=== PATIENT | male | born 1930 | race African-American/Black ===

== ENCOUNTER 2016-09-18 14:31 | Emergency (ER) | payer MEDICARE, SELFPAY ==
[~2016-09-18] VITALS: Ht 177.8 cm; Wt 100.0 kg
[2016-09-18 21:30] VITALS: BP 155/68
== END 2016-09-18 20:56 | disposition home or self-care (01) ==
LOC: ER 15:56
DX: S90.812A Abrasion, left foot, initial encounter (principal); E11.9 Type 2 diabetes mellitus without complications; Z98.890 Other specified postprocedural states; Z87.19 Personal history of other diseases of the digestive system; Z87.09 Personal history of other diseases of the respiratory system; Z91.040 Latex allergy status; W50.4XXA Accidental scratch by another person, initial encounter; Y93.89 Activity, other specified; Y92.89 Other specified places as the place of occurrence of the external cause; Y99.8 Other external cause status; Z96.659 Presence of unspecified artificial knee joint
CPT/HCPCS: 99283